=== PATIENT | male | born 1945 | race Caucasian/White ===

== ENCOUNTER 2017-08-20 00:51 | Inpatient (IN) | payer OTHER ==
--- NOTE | 2017-08-18 14:03 | PN- Neurosurgical ---
Surgical Brief Attending Note Brief Attending Note: Admission note for 71-year-old gentleman who has since a fall in 03/18/2017 neck pain and complaints of weakness and tingling in his upper and lower extremities which worsened his pre-existing chronic low back pain. Since that point in time he is complaining of numbness and weakness in his arms and legs worse on the left than on the right. Symptoms are worse with walking and improved with rest. He complains of weakness numbness and tingling. The left side of his body. He denies any bowel bladder or sexual dysfunction He has been in extensive physical therapy with some degree of improvement He feels he is walking decently though his disputes this point Past medical history apart from the usual childhood disorders positive for hypothyroidism and high cholesterol gallops diabetes hypertension inguinal hernia. He has been told he needs rotator cuff surgery. He has no allergies to medication Is taking them. Thyroxine allopurinol metformin lisinopril atorvastatin Januvia vitamin D vitamin E and C Q10 He has sleep apnea. He quit smoking 15 years ago has 7 drinks a week. Stands 5 foot 5 and weighs 181 pounds. Cranial nerves are intact. He is awake alert and oriented. He is a relatively well-preserved range of motion of his neck, perhaps a Spurling sign to the right. Motor strength reveals weakness of the deltoids very weak grasp on the left at 3 + over 5. He has a decreased sensation to pinprick from his C4 distribution down. The lateral suspensory on the left. He is 203+ bicipital brachioradialis reflexes, 4+ bicipital reflexes, he has increased finger flexors and Mariajose's bilaterally He is diffusion of reflexes in his knee 5 or 6 beats of clonus at his ankles and upgoing toes. He has decreased sensation in both eyes. He has a C4 sensory level and is profoundly myelopathic distal to this MRI shows a very marked complex at C3 4 with severe canal stenosis and severe compression of the spinal cord. He has severe bilateral neural foraminal stenosis at that level. At C4 5 there is a large disc osteophyte complex with severe canal stenosis and severe compression of the cord and neural foraminal stenosis as well. C5 6 and C6 7 show also spondylosis with a slightly lesser degree of thecal cord compression. No abnormal signals were at C3 4 down to C4 5. He is being admitted for surgical treatment.
[~2017-08-20] VITALS: Ht 165.1 cm; Wt 81.6 kg
[~2017-08-20 00:51] MED LIST: ALLOPURINOL100 M1 PO; COQ-10100 MG; JANUVIA50 M1 PO; LIPITOR80 M1 PO; METFORMIN HCL500 M3 PO; SYNTHROID100 MCG PO; TYLENOL EXTRA500 M2 PO; VITAMIN E1000 UNI1; ZESTORETIC 20-1 EACH PO
--- NOTE | 2017-08-20 13:42 | Operative Report ---
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 This positioning was performed in the supine position entirely under control intermittently of neurophysiology and no changes were obtained at that point in time. The patient was in a halter traction device with 10 pounds of weight. His neck was prepped and draped usual sterile manner infiltrated with Xylocaine and epinephrine and sharp dissection was carried down to the platysma which was then dissected in the direction of its fibers Sharp anterior cervical dissection was then performed Superior were placed confirming that we were at C3-4 and C4-5 and under the illumination provided for by the Leica microscope the spaces were entered first at C3 4 than at C4 5 large osteophytes removed with 1 and 2 mm Kerrisons the disc fragments at L4 5 removed with micro-graspers the foramen a open with 1.5 mm and 2 mm Kerrisons Following this using the drill and rasps V angled curettes and Kerrisons the spaces were squared away and prepared for fusion all the time preserving bone dust and fragments for fusion. Once the space was prepared for the procedure was turned over to the orthopedic service of Benito Kelly MD and this will be dictated separately Findings: Large osteophytic overgrowth at C3-4 Osteophytes with acute disc herniation element at C4-5 Discharge Disposition: Same Day Admissions Additional Comments: Neurophysiology remained stable throughout the case CC: Leticia FUNES,Benito Foote
--- NOTE | 2017-08-20 15:32 | RADIOLOGY REPORT ---
EXAMINATION: FLUOROSCOPY CERVICAL SPINE IN OPERATING ROOM CLINICAL INFORMATION: ACD 3-5 with fusion in OR. COMPARISON: None. TECHNIQUE: Fluoroscopy was provided in the operating room. Single intraoperative spot view was obtained of the cervical spine in the lateral projection. NUMBER OF FLUOROSCOPIC IMAGES: 1 images. FLUOROSCOPY TIME: 17 seconds. FINDINGS AND IMPRESSION: There is an anterior plate and vertebral body screws from C3 to C5 with interbody devices at C3-C4 and C4-C5 as well. There is normal anatomic alignment.
[2017-08-20 18:11] VITALS: BP 152/84
--- NOTE | 2017-08-20 18:17 | PN- Neurosurgical ---
Subjective Subjective: POSTOP CHECK Patient reports numbess in his left groin, tips of his left fingers and forearm, which he had preop. He is tolerating a diet and reports incisional pain which is well controlled. Denies nausea, vomiting, fever or chills. Denies passing flatus Objective Vital Signs and I&Os Vital Signs Date Time Temp Pulse Resp B/P B/P Pulse O2 O2 Flow FiO2 Mean Ox Delivery Rate 08/20 1811 98.4 90 20 152/84 97 Room Air Physical Exam: Gen - accompained by family in nad HEENT - collar in place, anterior dressing stained with sanguineous drainage, no active drainage or hematoma noted, appropriately tender Cardiac - S1S2 noted, + murmur Lungs - coarse breath sounds, no wheezing or rales noted Abd - soft, nondistended, nontender - Estevez in place Ext - moves extremities, muscle strength 3/5 LUE, 4/5 RUE, 4/5 LLE 5/5 RUE, alps in place, no edema or calf tenderness Assessment/Plan Assessment/Plan 72 M s/p C3-C5 ACDF w/ spinal stenosis decompression secondary to C3-C5 cervical stenosis and myelopathy Ada diet, IVF Postop abx - ancef x2 Keep collar in place Pain regimen prn Decardon taper for cervical myelopathy Guaifenesin for cough, encourage IS ISS on board Home meds ordered DVT ppx - alps, early ambulation Keep estevez in place PT eval in am AM labs tomorrow D/w Dr. Kelly Core Measures Venous Thromboembolism VTE Risk Factors Surgery No Mechanical VTE Prophylaxis d/t N/A MechProphylax Ordered No VTE Pharm Prophylaxis d/t LowRisk-No Interven Req'd (/spine surgery)
[2017-08-20 20:20] VITALS: BP 160/100
[2017-08-20 22:44] VITALS: BP 158/90
[2017-08-20 23:55] VITALS: BP 146/80
[2017-08-21 06:43] VITALS: BP 135/78
[2017-08-21 08:34] LABS: ABSOLUTE BASOPHIL COUNT 0 /CUMM (0.0-0.2); ABSOLUTE EOSINOPHIL COUNT 0 /CUMM (0.0-0.7); ABSOLUTE GRANULOCYTE CT 9.1 /CUMM (1.4-6.5); ABSOLUTE LYMPH COUNT 0.6 /CUMM (1.2-3.4); ABSOLUTE MONOCYTE COUNT 0.3 /CUMM (0.10-0.60); BASOPHIL % 0 % (0.0-2.0); EOSINOPHIL % 0 % (0-5); GRANULOCYTE % 91.1 % (42.2-75.2); HEMATOCRIT 34.4 % (42-52); MEAN CORPUSCULAR HGB 28.1 PG (27.0-31.0); MEAN CORPUSCULAR HGB CONC 33.8 G/DL (33.0-37.0); MEAN CORPUSCULAR VOLUME 83.2 FL (80.0-94.0); MEAN PLATELET VOLUME 9.1 FL (7.4-10.4); PLATELET COUNT 231 /CUMM (130-400); RBC DISTRIBUTION WIDTH 13.9 % (11.5-14.5); RED BLOOD CELL CT 4.13 /CUMM (4.70-6.10)
--- NOTE | 2017-08-21 09:03 | PN- Orthopedic ---
Subjective Subjective: Awake, alert Pain is tolerable with meds No specific complaints Objective Vital Signs and I&Os Vital Signs Date Time Temp Pulse Resp B/P B/P Pulse O2 O2 Flow FiO2 Mean Ox Delivery Rate 08/21 0643 98.5 76 20 135/78 99 Nasal 2.0L Cannula 08/205 93 146/80 08/20 2244 99.0 96 20 158/90 99 Nasal 2.0L Cannula 08/20 2126 98 160/100 08/21 2019 98.6 98 20 160/100 96 Room Air 08/20 191 Nasal 3.0L Cannula 08/20 181 98.4 90 20 152/84 97 Room Air Intake & Output 08/21 1600 08/21 0800 08/21 0000 08/20 1600 08/20 0800 08/20 0000 Intake Total 1040 465 Output Total 800 1100 Balance 240 -635 Intake, IV 800 225 Intake, Oral 240 240 Output, Urine 800 1100 Patient 180 lb Weight Weight Reported by Patient Measurement Method Physical Exam: tmax 99 General; alert and oriented times three Ext: warm, no edema, positive sensate - numbness/tinglinig unchanged from pre op, LUE weakness chronic - at baseline Wd: dressed, dry Assessment/Plan Assessment/Plan 72 yo male s/p acdf C3-5 pod 1 PT - dc planning steroid taper collar at all times dc estevez Core Measures Venous Thromboembolism VTE Risk Factors Surgery No Mechanical VTE Prophylaxis d/t N/A MechProphylax Ordered No VTE Pharm Prophylaxis d/t LowRisk-No Interven Req'd (/spine surgery)
[2017-08-21 11:17] VITALS: BP 116/60
[2017-08-21] MEDS ORDERED: DEXAMETHASONE4 M1 PO ×3 (12:53→16:57)
[2017-08-21] MEDS ORDERED: OXYCODONE HCL10 M2 PO (12:53)
[2017-08-21] MEDS ORDERED: DEXAMETHASONE2 M1 PO ×3 (12:53→16:57)
--- NOTE | 2017-08-21 12:56 | Patient Discharge Instructions ---
Discharge Instructions General Discharge Information You were seen/treated for: weakness and pain You had these procedures: cervical fusion C 3-5 Watch for these problems: temp>101, increased weakness, increased redness or drainage of wounds Do not soak the wound: Yes Other wound care: Keep incision clean and dry. May shower, no bathiing or soaking Diet Continue normal diet: Yes Activity Pounds, do NOT lift more than: 10 Other activity limits: No bending, twisting, lifting, pulling or pushing. Acute Coronary Syndrome Inclusion Criteria At DC or during hospital stay patient has or had the following: Discharge Core Measures Meds if any: Prescribed or Continued at Discharge Meds if any: NOT Prescribed or Continued at Discharge Congestive Heart Failure Inclusion Criteria At DC or during hospital stay patient has or had the following: Discharge Core Measures Meds if any: Prescribed or Continued at Discharge Meds if any: NOT Prescribed or Continued at Discharge Cerebrovascular accident Inclusion Criteria At DC or during hospital stay patient has or had the following: Discharge Core Measures Meds if any: Prescribed or Continued at Discharge Meds if any: NOT Prescribed or Continued at Discharge Venous thromboembolism Discharge Core Measures - Per Current guidelines, there needs to be overlap - treatment for the first 5 days of Warfarin therapy. - If discharged on Warfarin prior to 5 days of - overlap therapy, the patient will need to be - assessed for post discharge needs including - *Post discharge parental anticoagulation - *Warfarin and/or parental anticoagulation education - *Follow up date to check INR post discharge Meds if any: Prescribed or Continued at Discharge Note: Overlap Therapy is Warfarin and Anticoagulant Meds if any: NOT Prescribed or Continued at Discharge
[2017-08-21 14:29] VITALS: BP 125/71
--- NOTE | 2017-08-21 14:36 | PN- Neurosurgical ---
Surgical Brief Attending Note Brief Attending Note: Postoperative day #1 Overall feels comfortable. Perhaps some increased weakness of his deltoid on the right remainder of his examination is essentially same as preop. We'll go home since cleared PT and will be kept on decreasing doses of Decadron for the next 3days We'll see in the office in 2 weeks
--- NOTE | 2017-08-21 16:48 | Surg Short-stay <48hrs Dis Sum ---
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 His pain was controlled with oral medication. He was evaluated by PT and cleared for discharge home. All instructions given Condition at Discharge: good Discharge Disposition: home or self care Discharge instructions provided to patient/family: Yes Post discharge follow-up plan: Call for an appointment to be seen within two weeks of discharge
[2017-08-21] MEDS ORDERED: OXAYDO7.5 MG PO (16:56)
[2017-08-21] MEDS ORDERED: VALIUM5 M2 PO (16:56)
--- NOTE | 2017-08-22 11:00 | Operative Report ---
Operative/Inv Procedure Report Surgery Date: 08/20/17 Name of Procedure: 1) C3-C4 Anterior Cervical Discectomy And Instrumented Fusion ([facility]) 2) C4-C5 Anterior Cervical Discectomy And Instrumented Fusion ([facility]) 3) C3-C4 Anterior Cervical Interbody PEEK Implant Instrumentation ([facility]) 4) C4-C5 Anterior Cervical Interbody PEEK Implant Instrumentation ([facility]) 5) C3-C5 Anterior Cervical Transvertebral Plate-Screw Implant Construct Instrumentation ([facility]) 6) C3-C4 And C4-C5 Anterior Cervical Interbody Moselized Local Autograft Sharon, Preparation And Implantation ([facility]) 7) C3-C4 And C4-C5 Use Of Operating Microscope ([facility]) Pre-Operative Diagnosis: Primary Surgically Treated Diagnoses: 1) C3-C4 Multizone (Central, Bilateral Recess And Bilateral Intraforaminal) 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 Clinically Manifest As Moderate Bilateral Proximal Greater Than Distal Upper Extremity Weakness, Mild To Moderate Atrophic Changes, Numbness And Dyscoordination As Well As Diffuse Abherent Reflexes, Balance And Gait Abnormalities Without Significant Spasticity Correlating With The Cervical Spinal Cord Signal Changes Evident On Preoperative MRI (* = Refer Here And Elsewhere In This Diagnosis List And Document For This Patient's Detailed Myelopathy Symptom And Finding Description) 2) C4-C5 Multizone (Central, Bilateral Recess And Bilateral Intraforaminal) Mid-Cervical Intervertebral Disc Disorder With Associated Symptoms Of Cervical Compressive Myelopathy* 3) C3-C4 And C4-C5 Upper And Mid-Cervical Multizone (Central Canal, Bilateral Recess And Bilateral Osseous As Well As Degenerative And Displaced Soft Tissue Foraminal) Cervical Spinal Stenosis 4) C3-C4 And C4-C5 Multizone (Central, Bilateral Recess And Bilateral Intraforaminal) Upper And Mid-Cervical Spondylosis With Associated Symptoms Of Cervical Compressive Myelopathy* 6) C3-C4 Multizone (Central, Bilateral Recess And Bilateral Intraforaminal) Upper Cervical Intervertebral Disc Disorder With Associated Moderate To Severe [ Right/Left/Bilateral] Proximal (Primarily Shoulder) Greater Than Distal Upper Extremity Radicular Distribution Resting, Positional, Activity-Related And Claudicating Radiating Pain, Objectively Confirmed Motor Weakness And Numbness Symptoms And Deficits Of Moderate To Severe Proximal Upper Cervical Compressive Radiculopathy ( = Refer Here And Elsewhere In This Diagnosis List And Document For Detailed Radiculopathy Symptom And Finding Description) 7) C4-C5 Multizone (Central, Bilateral Recess And Bilateral Intraforaminal) Mid-Cervical Intervertebral Disc Disorder With Associated Symptoms And Deficits Of Mid-Cervical Compressive Radiculopathy* 8) C3-C4 And C4-C5 Multizone (Central, Bilateral Recess And Bilateral Intraforaminal) Upper And Mid-Cervical Spondylosis With Associated Symptoms And Deficits Of Cervical Compressive Radiculopathy* Secondary Surgically Treated Diagnoses: 5) Upper And Mid-Cervical Myelopathy* Of Undefined And Potentilly Only Partial Relationship To Operative Level Intervertebral Disk Disorder And Spondylosis 9) Bilateral Upper Extremity Proximal (Shoulder) Greater Than Distal (Hand And Wrist) Subjective And Objectively Documented Motor Neurological Deficit 10) Bilateral Proximal And Distal Upper Extremity Subjectively Reported Coordination Neurological Deficit Associated With Intermittent Deterioration Of Both Fine And Gross Motor Function Including Writing, Manipulation Of Small Objects And Prolonged Holding Of Even Light Objects As Well As Positioning Of Upper Extremities In Space, Maintaining Balance And Ambulating On Uneven Ground 11) Moderate Balance Disorder 12) Bilateral Proximal Greater Than Distal Upper Cervical Radiculopathy* Of Undetermined And Possibly Only Partial Relationship To Concurrent Operative Level Intervertebral Disk Disorder And Spondylosis 13) C3-C4 And C4-C5 Upper And Mid-Cervical Level Severe Spinal Cord Chronic Compression And Possible Acute Contusion As Documented On Preoperative Cervical Spinal MRI Study Which Is Considered Clinically Significant In This Clinical Presenttion Given The Association With Moderate Symptoms And Examination Findings Of Correlating Myelopathy* 14) C3-C4 And C4-C5 Upper And Mid-Cervical Level Moderate To Severe Spinal Cord Myelomalacia As Documented On Preoperative Cervical Spinal MRI Study Considered Clinically Significant In Association With Correlating Spondylotic Compression As Well As Symptoms And Signs Of Myelopathy* 15) C3-C4 Intermediate-Sized Broad-Based Diffuse Multizone (Central, Bilateral Recess And Bilateral Intraforaminal) Displacement Of Degenerative Upper Cervical Intervertebral Disc Associated With Spinal Canal And Foraminal Encroachment Contributing To Spinal Cord And Nerve Root Compression 16) C4-C5 Intermediate-Sized Broad-Based Diffuse Multizone (Central, Bilateral Recess And Bilateral Intraforaminal) Displacement Of Degenerative Mid-Cervical Intervertebral Disc Associated With Spinal Canal And Foraminal Encroachment Contributing To Spinal Cord And Nerve Root Compression 17) C3-C4 Chronic (Age-Related And Osteoarthritic), Subacute (Probably Inflammatory Athritic) And Acute (Post-Traumatic) Degeneration Of Upper Cervical Intervertebral Disc 18) C4-C5 Chronic (Age-Related And Osteoarthritic), Subacute (Probably Inflammatory Athritic) And Acute (Post-Traumatic) Degeneration Of Mid-Cervical Intervertebral Disc 19) C3-C4 And C4-C5 Bilateral Upper And Mid-Cervical Disk Space Marginal Large Anterior And Moderate-Sized Posterobilateral Endplate (Central Canal And Bilateral Recess) And Bilateral Uncovertebral (Intraforaminal) Compressive Osteophytic Spondylosis 20) Diffuse Bilateral Upper And Lower Extremity Moderately Hyperactive And Abherent Reflexes (Biceps, Brachioradialis, Triceps, Patellar Tendon And Achilles Tendon Hyperactive Percussion Reflexes As Well As Abherent Reverse Radial Reflex, France's Sign And Clonus Without Babinski's Sign) 21) Bilateral Intermittent Distal Upper Extremity Subjective Hypoesthetic (But Not Dysesthetic) Disturbance Of Skin Sensation 22) Moderate Ambulatory Difficulty 23) Mild To Moderate Activity Limiting Neck (Cervical Spine) Pain (Cervicalgia ) 24) Abnormal Electrophysiology (Electromyography) Demonstrating Bilateral Upper Extremity Median Neuropathy And Mid-Cervical Radiculopathy As Well As Both Motor And Sensory Chronic Polyneuropathy 25) C3-C4 And C4-C5 Bilateral Upper And Mid-Cervical Level Moderate To Severe Degenerative Osteoarthritic Facet Arthropathy 26) C3-C4 And C4-C5 Bilateral Upper And Mid-Cervical Level Moderate To Severe Hypertrophic Facet Arthropathy Secondary Surgically Relevant Diagnoses: 27) C2-T1 Moderate To Severe Diffuse And Extensive Cervical, Cervicothoracic Junction And Other Spinal Regional Degenerative Arthritis (Spondyloarthropathy) Comorbid Diagnoses: 28) Diabetes Post-Operative Diagnosis: Same as preoperative diagnosis list with the addition of: Intraoperative Surgically Treated Diagnoses: 1) C3-C4 And C4-C5 Expected Upper And Mid-Cervical Spinal Segmental Intraoperative (Post-Discectomy And Pre-Instrumentation) And Potential Postoperative Instability Requiring Operative Instrumented Stabilization Intraoperative And Postoperative Diagnoses Relevant To Postoperative Care: 1) C3-C4 And C4-C5 Expected Upper And Mid-Cervical Potential Early Postoperative (Post-Discectomy, Post-Instrumentation And Pre-Arthrodesis) Microinstability Requiring Acute Postoperative Activity Limitation And Rigid Cervical Orthosis Use 2) Anticipated Acute Postoperative Neck Region Pain Requiring Potentially Sedating Postoperative Narcotic Analgesic Medication And Inpatient Nursing Observation For Sedation Monitoring And Supervised Mobilization Following Complex And Extensive But Uncomplicated Multilevel Anterior Cervical Discectomy And Instrumented Fusion 3) Anticipated Acute Postoperative Neck And Shoulder Region Muscular Spasm Requiring Potentially Sedating Postoperative Muscle Relaxant Medication Following Procedure Described Above 4) C3-C4 And C4-C5 Acute Anterior Cervical Spinal Decompression Postprocedural Status 5) C3-C4 And C4-C5 Acute Anterior Cervical Spinal Arthrodesis Postprocedural Status 6) Presence of C3-C4 And C4-C5 Anterior Cervical Spinal Interbody PEEK Cage And C3-C5 Anterior Transvertebral Plate-Screw Osseous Stabilization Instrumentation Construct Implants 8) Potential For Suboptimal Bone Healing Relative To The Typical Healing Likelihood And Timecourse For A Standard (Single Level) ACDF Due To The Multilevel Nature Of The Patient's Procedure Which Meets Criteria For The Use Of An External Pulsed Electromagnetic Field Stimulation Device To Optimize And Potentially Accelerate Osseous Fusion Formation Estimated Blood Loss: See anesthesia record Surgeon/Manager Equity: IGOR MARTÍNEZ MD - Primary Consulting Orthopaedic Spine Co-Surgeon BIENVENIDO TAVERAS MD - Primary Consulting Neurological Spine Co-Surgeon Surgical Providers: Regarding Orthopaedic Spine Portion Of Procedure Dictated Here: Igor Martínez M.D. - Orthopaedic Spine Surgeon (Co-Surgeon/Primary Surgeon) Bienvenido Taveras M.D. - Neurosurgeon (Co-Surgeon/Manager Equity Surgeon) See Neurosurgical Operative Report Regarding Surgical Provider Designation For Neurosurgical Spine Portion Of Procedure Anesthesia: general endotracheal tube Monitors: Implants: Implants Placed: Anterior Interbody Implants: Medtronic Scrybetone Anatomic PEEK PTC Interbody Cage Implants: 1 x 8 mm Height x 11 mm Depth x 14 mm Width At C4-C5 1 x 7 mm Height x 11 mm Depth x 14 mm Width At C3-C4 Anterior Transvertebral Cervical Implants: Medtronic Anterior Cervical Schlater Vision Elite (AVE) Plate- Screw Construct: 1 x 40 mm 2-Level (2 Intervertebral Motion Segment, 3 Vertebral Body Element), 6-Hole AVE Plate Implanted Spanning The C3-C5 Segment With Fixation At The C3, C4 And C5 Vertebral Levels 2 x 4.0 mm [address]ameter Fixed Angle AVE Screws: 1 x 13 mm Length Fixed Angle Self-Tapping (FAST) Screw Implanted On The Right At C5 1 x 15 mm Length Fixed Angle Self-Drilling (FASD) Screw Implanted On The Left At C5 4 x 4.0 mm Diameter Variable Angle AVE Screws: 1 x 15 mm Length Fixed Angle Self-Drilling (FASD) Screw Implanted On The Right At C3 (With Slightly Prominent Head Of Screw Partially Removed Until Flush With Plate) 1 x 15 mm Length Fixed Angle Self-Tapping (FAST) Screw Implanted On The Left At C5 2 x 17 mm Length Fixed Angle Self-Drilling (FASD) Screws Implanted One On Each Side At C4 Graft: Graft Placed: Morselized Locally Harvested Autograft: Harvested From C3-C4 And C4-C5: Resected Anterior And Posterior Endplate As Well As Uncovertebral Osteophytes Decorticated And Drill Contoured Osseous Endplate Bone Densely Packed In The Central Chamber Of The Interbody Cages At C3-C4 And C4-C5 Operative/Procedure Note Note: The patient's immediate preoperative evaluation revealed no change in his baseline deficits which are well described office notes and in his preoperative clearance evaluations. He remains myelopathic. Has bilateral shoulder degenerative and neuropathic weakness. He has upper extremity deficits and atrophy all likely related to his cervical spinal cord compression. MD Dr. Lashay Mei were both present and participated in all phases of the procedure as well as all decision making in the perioperative period. Patient brought to the operating room in stable condition and underwent general anesthesia using standard techniques and protocols without complication. All standard protocols were followed for antibiotics etc. The surgical site was wrapped and draped in usual sterile fashion after localization using a marker on the skin with fluoroscopic imaging to localize the optimal skinfold for incision overlying the intended operative levels. After standard prep and drape the curvilinear incision was made from midline to the edge of the sternocleidomastoid using a #10 scalpel blade. Dissection was then carried through the platysma using blunt dissection in line with the fibers in a longitudinal fashion. Retractors were used to then exposing interval between the esophagus and trachea medially and the carotid laterally. This was carried down to the prevertebral space which was fully exposed. There was dense fibrous tissue in this region consistent with the patient's significant degenerative disease and probable underlying spondyloarthropathy. Needle markers were placed and localized on lateral C-arm view. This confirmed that the levels of dissection were the intended levels for decompression (C3-C4 and C4-C5). The microscope was brought in and standard discectomy was performed. This involved rectangular annulectomy using a #11 scalpel blade. The anterior portion of the disc was removed with pituitary rongeurs. The C3-C4 level was performed first as this was the level of greatest pathology. An intervertebral maintenance supervisor mechanical was placed. The remainder of the disc material was removed using pituitary Gunderson and carried down to the vertebral joints. Curved curette was used to dissect through the longitudinal ligament which was resected using Kerrison rongeurs. During this process a central disc herniation was noted corresponding to the MRI findings. This was removed with pituitary rongeur and significant decompression was noted following removal of this disc material. There are also smaller disc herniation fragments laterally and into extending into the foramina which were removed and associated with significant decompression of the exiting nerve roots. With the decompression completed each neural element and zone was checked with a curved curette and ball-tipped nerve for with clear passage and no residual impingement noted. Identical discectomy was performed at the C4-C5 level with the only difference being that a smaller central and lateral disc herniation was noted and this corresponded also with the preoperative MRI. With the discectomy and decompression completed the surgeons switched sides of the table and Igor Martínez MD proceeded with the fusion portion of the procedure. The endplates were decorticated using a drill. The drilled cartilaginous material was removed by suction. The osseous endplate was then decorticated and contoured using the drill. These osseous fragments were collected with suction using a suction trap. The fluid in this collected bone was removed by placing the contents of the suction trap on a gauze and the result was milled bone autograft for reimplantation in the cages. A trial was used and optimal fit documented. Cage sizes listed above. The initial instrumentation was at the C4-C5 level. Anatomic PEEK PTC cage was filled with autograft and implanted with stable fit. Attention was then turned to the C3-C4 level where identical technique was used and a similar type cage (details and size listed above) was implanted. With both cages implanted this resulted in gnosticism of lordosis and disc space height. The anterior vertebral bodies and endplates were contoured with a drill for optimal placement of the nature plate. Appropriate plate size was selected so that the upper and lower screw holes were just above and below the most cephalad and caudal endplates respectively. The plate was contoured into optimal lordosis. It was fixed in place with fixation pins and document be optimal in position on C-arm views. Screws were then placed using standard technique (details listed above). Should be noted that the upper right side variable angle screw advanced down to the plate level but would not advance entirely into the screw hole and therefore could not be covered by the locking mechanism. The screw could not be removed as the patient's bone was quite sclerotic in this region and the head stripped during attempt at screw removal. Consequently it was determined that the removal of the screw head would still allow for optimal fixation and that, should the hardware ever need to be removed that would actually be easier to get the screw out once the plate had been removed. Consequently a metal cutting farideh was used with the [place] drill to remove the top of the screw thus allowing the locking mechanism to pass over the top of this resected upper portion. All other screws were placed and fixed with a locking mechanism using standard technique. Hemostasis was achieved using Surgi-Joseph and bipolar electrocautery for any punctate bleeding. The surgical site was clean and dry at the end of the procedure note drain was felt to be needed in this circumstance. Standard closure was performed using 3-0 Vicryl for the deeper layers and 4-0 Vicryl running subcuticular closure for the skin followed by Steri-Strips with Mastisol. A medium [place] dressing was placed. Foam [place] cervical collar was placed with good fit. The patient was exited without difficulty. He was transferred to the hospital bed and transferred to the current removed where he was found to have his normal preoperative baseline of neurological function without any new deficit or abnormality. He will follow standard postoperative protocol for multilevel anterior cervical discectomy and fusion with certain accommodations made to the standard protocols because of his fairly significant spinal cord compression, acute contusion following a fall several months ago, myelomalacia on MRI, and myelopathy.
== END 2017-08-21 18:42 | disposition home health service (06) | DRG 473 ==
LOC: SDA 00:51 → 2NB 00:51 → ENRESERV 15:02 → ENTRNSPT 16:05 → EDTRNSPT 16:09 → EDTRNSPTSTS 16:09 → EDTRNSPT 16:13 → 2NB 16:31 → CMPTRNSPT 16:43 → ENPENDDIS 08-21 13:16 → ENTRNSPT 08-21 18:10 → 2NB 08-21 18:42 → CMPTRNSPT 08-21 18:43
PROVIDERS: Nurse Practitioner
PROC: 0RG20A0 Fusion of 2 or more Cervical Vertebral Joints with Interbody Fusion Device, Anterior Approach, Anterior Column, Open Approach (ICD-10-PCS; principal; 2017-08-20)
PROC: 0RG2070 Fusion of 2 or more Cervical Vertebral Joints with Autologous Tissue Substitute, Anterior Approach, Anterior Column, Open Approach (ICD-10-PCS; principal; 2017-08-20)
PROC: 0RB30ZZ Excision of Cervical Vertebral Disc, Open Approach (ICD-10-PCS; principal; 2017-08-20)
DX: M47.12 Other spondylosis with myelopathy, cervical region (principal); E11.8 Type 2 diabetes mellitus with unspecified complications; I44.4 Left anterior fascicular block; I10 Essential (primary) hypertension; Z79.84 Long term (current) use of oral hypoglycemic drugs; E03.9 Hypothyroidism, unspecified
CPT/HCPCS: 2NBSP; 36415; 36592; 72020; 82436; 87086; 97116-GO; 97161-GP; 97530-GO; C1713; J0131; J0690; J1100; J1815; J2405; J2550

== ENCOUNTER 2017-12-02 14:40 | Emergency (ER) | payer OTHER ==
[~2017-12-02] VITALS: Ht 165.1 cm; Wt 79.4 kg
[~2017-12-02 14:40] MED LIST changes: +DEXAMETHASONE2 M1 PO; +DEXAMETHASONE4 M1 PO; +OXAYDO7.5 MG PO; +OXYCODONE HCL10 M2 PO; +VALIUM5 M2 PO
[2017-12-02 14:52] VITALS: BP 129/83
--- NOTE | 2017-12-02 15:01 | ED UPPER/LOWER EXTREMITY COMPL ---
History of Present Illness General Chief Complaint: General Adult Stated Complaint: PICKED AT LEG, SMALL DOT STILL BLEEDING X30 MIN Source: patient Exam Limitations: no limitations Vital Signs & Intake/Output Vital Signs & Intake/Output Vital Signs Date Time Temp Pulse Resp B/P B/P Pulse O2 O2 Flow FiO2 Mean Ox Delivery Rate 12/02 1511 Room Air 12/02 1452 98.1 87 15 129/83 97 Room Air Room Air Allergies Coded Allergies: No Known Allergies (04/25/17) Reconcile Medications Acetaminophen (Tylenol Extra Strength) 500 MG TABLET 2 TAB PO Q6 PAIN ( Reported) Allopurinol 100 MG TABLET 1 TAB PO DAILY GOUT (Reported) Atorvastatin Calcium (Lipitor) 80 MG TABLET 1 TAB PO DAILY CHOLESTEROL ( Reported) Dexamethasone 4 MG TABLET 4 MG PO SEE ADMIN CRITERIA myelopathy TAPER INSTRUCTED Dexamethasone 2 MG TABLET 2 MG PO SEE ADMIN CRITERIA MYELOPATHY TAPER INSTRUCTED Diazepam (Valium) 5 MG TABLET 1 TAB PO SEE ADMIN CRITERIA PRN SPASM Levothyroxine Sodium (Synthroid) 100 MCG TABLET 1 TAB PO DAILY REPLACEMENT ( Reported) Metformin HCl 500 MG TABLET 1 TAB PO BID DM (Reported) Oxycodone HCl (Oxaydo) 7.5 MG TABLET.ORL 1-2 TAB PO SEE ADMIN CRITERIA PRN PAIN Sitagliptin Phosphate (Januvia) 50 MG TABLET 1 TAB PO DAILY DM (Reported) Ubidecarenone (Coq-10) 100 MG CAPSULE SUPPLEMENT (Reported) Vitamin E Mixed (Vitamin E) 1,000 UNIT CAPSULE SUPPLEMENT (Reported) Zestoretic (Zestoretic 20-12.5 MG Tablet) 20 MG-12.5 MG TABLET 1 TAB PO DAILY HTN (Reported) Triage Note: PT TO ED FOR BLEEDING TO LEG S/P SCRATCHED A VARICOSE VEIN. BLEEDING CONTROLLED IN TRIAGE. Triage Nurses Notes Reviewed? yes Onset: Abrupt Duration: hour(s):, constant, continues in ED Timing: single episode today Severity: moderate, severe HPI: 72-year-old male comes into the emergency room for further evaluation of bleeding to right leg. Patient reports that he was picking at his leg and he must have picked that 1 his varicose veins and it ruptured and was bleeding and he cannot control. Denies any anticoagulants. He comes in for further evaluation. (Kunal Wilkerson) Past History Travel History Traveled to [place] past 21 day No Medical History Any Pertinent Medical History? see below for history Neurological: NONE EENT: NONE Cardiovascular: hypertension, hyperlipidemia Respiratory: NONE Gastrointestinal: NONE Hepatic: NONE Renal: NONE Musculoskeletal: NONE Psychiatric: NONE Endocrine: diabetes, HYPOTHYROID Blood Disorders: NONE Cancer(s): NONE Surgical History Surgical History: hernia repair-inguinal, TONSILLECTOMY Psychosocial History Who do you live with Patient and family What is your primary language Mongolian Tobacco Use: Never used Family History Hx Contributory? No (Kunal Wilkerson) Review of Systems Review of Systems Constitutional: Reports: no symptoms. EENTM: Reports: no symptoms. Respiratory: Reports: no symptoms. Cardiovascular: Reports: no symptoms. Gastrointestinal/Abdominal: Reports: no symptoms. Genitourinary: Reports: no symptoms. Musculoskeletal: Reports: no symptoms. Skin: Reports: no symptoms. Neurological/Psychological: Reports: no symptoms. Hematologic/Endocrine: Reports: see HPI. Immunological: Reports: no symptoms. All Other Systems: Reviewed and Negative (Kunal Wilkerson) Physical Exam Physical Exam General Appearance: well developed/nourished, mild distress Head: atraumatic Eyes: Bilateral: normal appearance. Ears, Nose, Throat: normal ENT inspection, hearing grossly normal Neck: normal inspection Cardiovascular/Respiratory: no respiratory distress Back: normal inspection Leg Right: small area of oozing from varicose vein to right upper leg medial aspect Neurologic/Tendon: normal sensation, normal motor functions, normal tendon functions, responds to pain, no evidence tendon injury, no pulse deficit Skin: intact, normal color, warm/dry Lymphatic: no anterior cervical shadi (Kunal Wilkerson) Progress Differential Diagnosis: Percocet and ruptured, cellulitis, Plan of Care: 12/02/2017 3:47:13 PM Area was cleaned with peroxide. Dermabond was used. Compression wrap placed. No recurrent bleeding or oozing through dressing. Stable for discharge. Told to leave the dressing in place for 2 days. (Kunal Wilkerson) Departure Departure Disposition: HOME OR SELF CARE Condition: Stable Clinical Impression Primary Impression: Ruptured varicose vein Referrals: Shane Chavez MD (PCP/Family) Additional Instructions: Keep dressing in place for 2 days. Return if any recurrent bleeding or any other concerns worsening symptoms. Please go over all results of today's visit with your primary care doctor. Contact your primary care doctor to let them know you were here in the emergency room. There may be nonspecific findings which may not be related to your visit today here in the emergency room but may require further evaluation and chronic monitoring by your primary care doctor. If you had a laceration today the chance of foreign body always remains. You should follow-up with your primary care doctor for recheck in 3-5 days for a wound check. If you had an x-ray done there is a chance that a fracture could have been missed on initial read and you should follow-up with your primary care doctor for repeat x-rays if symptoms persist. If your blood pressure was elevated here in the emergency room please have rechecked by [facility] primary care doctor within the next 48. If you were prescribed a narcotic here in the emergency room or any type of controlled substances you're not allowed to drive while taking this medication or operate any type of heavy machinery. Narcotics can make you feel lightheaded dizziness nausea and can cause constipation. You may need to berry picker a stool softener. Thank you for choosing [facility] emergency room. Please return to the emergency room immediately if you have any other concerns worsening of symptoms. Departure Forms: Customer Survey General Discharge Information (Kunal Wilkerson) PA/CATALYST UNIT OPERATOR Co-Sign Statement Statement: ED Attending supervision documentation- [x] I saw and evaluated the patient. I have also reviewed all the pertinent lab results and diagnostic results. I agree with the findings and the plan of care as documented in the PA's/CATALYST UNIT OPERATOR's documentation. [] I have reviewed the ED Record and agree with the PA's/CATALYST UNIT OPERATOR's documentation. [] Additions or exceptions (if any) to the PAs/CATALYST UNIT OPERATOR's note and plan are summarized below: [] (Gabriel Norwood DO
== END 2017-12-02 15:13 ==
LOC: ERH 14:40
DX: I83.891 Varicose veins of right lower extremity with other complications (principal); I10 Essential (primary) hypertension; E78.5 Hyperlipidemia, unspecified; E11.9 Type 2 diabetes mellitus without complications; Z79.84 Long term (current) use of oral hypoglycemic drugs; E03.9 Hypothyroidism, unspecified